=== PATIENT | male | born 1955 | race Caucasian/White ===

== ENCOUNTER 2018-10-08 15:09 | Emergency (ER) | payer OTHER ==
--- NOTE | 2018-10-08 15:17 | ER Report ---
History and Physical Time Seen By MD: 15:17 HPI/ROS CHIEF COMPLAINT: Dizziness, vomiting HISTORY OF PRESENT ILLNESS: 63-year-old male patient presents to emergency room with complaint of dizziness and vomiting. Patient states this started this morning when he woke up. He states that the symptoms he got out of bed he is very dizzy. He states that he was able to walk using the mancuso to let the dogs out. He states that after that he try lying back down. He states he did have nausea and vomiting associated with this. He states that any type of movement seems to make the dizziness worse. He states he is not taking any medication for this. He denies having any fevers, diarrhea. Patient states he's never had this in the past. REVIEW OF SYSTEMS: Respiratory: No cough, no dyspnea. Cardiovascular: No chest pain, no palpitations. Gastrointestinal: As noted above. Musculoskeletal: No back pain. Allergies: Coded Allergies: No Known Drug Allergies (Unverified , 10/08/18) Home Meds Active Scripts Ondansetron Hcl (ZOFRAN) 4 Mg Tablet, 4 MG PO Q6H PRN for NAUSEA/VOMITING, #20 TAB Prov:ALFRED ALANIS [facility] 10/08/18 Scopolamine (Scopolamine) 1 Mg/3 Day Patch.td.3, 1 PATCH.72H TD Q3D PRN for DIZZINESS, #3 PATCH.72H Prov:ALFRED ALANIS [facility] 10/08/18 Meclizine Hcl (MECLIZINE HCL) 25 Mg Tablet, 25 MG PO Q6H PRN for DIZZINESS, #30 TAB Prov:ALFRED ALANIS [facility] 10/08/18 Reported Medications Esomeprazole Magnesium (NEXIUM) 40 Mg Capsule.dr, 1 CAP PO QDAY, CAP 10/08/18 Aspirin (ASPIR 81) 81 Mg Tablet.dr, 81 MG PO QDAY, TAB 10/08/18 Cholecalciferol (Vitamin D3) (VITAMIN D3) 1,000 Unit Tablet, 5000 UNIT PO QDAY, TAB 10/08/18 Past Medical/Surgical History Patient has a past medical history of hiatal hernia, reflux, hyperlipidemia. Patient denies any surgical history. Reviewed Nurses Notes: Yes Constitutional Vital Sign - Last 24 Hours 10/08/18 10/08/18 10/08/18 10/08/18 15:09 15:15 15:18 15:30 Temp 97.6 Pulse ??? 86 Resp 20 B/P (MAP) 154/88 154/88 (110) 139/97 (111) O2 Delivery Room Air 10/08/18 10/08/18 10/08/18 10/08/18 15:39 16:00 16:30 16:39 Pulse 72 84 B/P (MAP) 128/76 (93) 140/82 (101) Pulse Ox 92 90 10/08/18 10/08/18 17:00 17:30 Pulse 75 77 B/P (MAP) 137/90 (106) 128/84 (99) Pulse Ox 93 93 Physical Exam General Appearance: The patient is alert, has no immediate need for airway protection and no current signs of toxicity. Eyes: Pupils equal and round no injection. Extraocular movements intact. Kian- Hallpike was done which was positive when looking to the left. Respiratory: Chest is non tender, lungs are clear to auscultation. Cardiac: regular rate and rhythm Gastrointestinal: Abdomen is soft and non tender, no masses, bowel sounds normal. Musculoskeletal: Neck: Neck is supple and non tender. Extremities have full range of motion and are non tender. Skin: No rashes or lesions. DIFFERENTIAL DIAGNOSIS: After history and physical exam differential diagnosis was considered for dizziness including but not limited to peripheral and central causes of vertigo, orthostatic causes including dehydration, and blood loss. Medical Decision Making Data Points Result Diagram: 10/08/18 1558 10/08/18 1558 Laboratory Hematology Test 10/08/18 15:14 10/08/18 15:58 Urine Color Yellow Urine Clarity Clear Urine pH 8.0 pH (4.8-9.5) Urine Specific [place] 1.020 Urine Protein 30 mg/dL (NEGATIVE) Urine Glucose (UA) Negative mg/dL (NEGATIVE) Urine Ketones 20 mg/dL (NEGATIVE) Urine Blood Negative (NEGATIVE) Urine Nitrite Negative (NEGATIVE) Urine Bilirubin Negative (NEGATIVE) Urine Urobilinogen Negative mg/dL (0.2-1.9) Urine Leukocyte Esterase Negative (NEGATIVE) Urine RBC None /HPF (0-2/HPF) Urine WBC 1 /HPF (0-5/HPF) Urine Squamous Epithelial Cells Few /LPF (</=FEW) Urine Bacteria Negative /HPF (NONE-FEW) Urine Mucus Few /HPF (NONE-FEW) Red Blood Count 5.19 M/uL (4.00-5.60) Mean Corpuscular Volume 89.3 fL (80.0-96.0) Mean Corpuscular Hemoglobin 30.4 pg (26.0-33.0) Mean Corpuscular Hemoglobin Concent 34.1 g/dL (32.0-36.0) Red Cell Distribution Width 12.8 % (11.5-14.5) Mean Platelet Volume 8.4 fL (7.2-11.1) Neutrophils (%) (Auto) 81.3 % (39.4-72.5) Lymphocytes (%) (Auto) 12.9 % (17.6-49.6) Monocytes (%) (Auto) 5.1 % (4.1-12.4) Eosinophils (%) (Auto) 0.0 % (0.4-6.7) Basophils (%) (Auto) 0.7 % (0.3-1.4) Nucleated RBC Relative Count (auto) 0.1 /100WBC Neutrophils # (Auto) 11.0 K/uL (2.0-7.4) Lymphocytes # (Auto) 1.7 K/uL (1.3-3.6) Monocytes # (Auto) 0.7 K/uL (0.3-1.0) Eosinophils # (Auto) 0.0 K/uL (0.0-0.5) Basophils # (Auto) 0.1 K/uL (0.0-0.1) Nucleated RBC Absolute Count (auto) 0.01 K/uL Sodium Level 140 mmol/L (137-145) Potassium Level 3.9 mmol/L (3.5-5.0) Chloride Level 110 mmol/L (98-107) Carbon Dioxide Level 21 mmol/L (22-30) Blood Urea Nitrogen 21 mg/dl (9-21) Creatinine 0.90 mg/dl (0.66-1.25) Glomerular Filtration Rate Calc > 60.0 Random Glucose 113 mg/dl (75-110) Calcium Level 9.1 mg/dl (8.4-10.2) Total Bilirubin 1.4 mg/dl (0.2-1.3) Aspartate Amino Transf (AST/SGOT) 39 U/L (0-35) Alanine Aminotransferase (ALT/SGPT) 33 U/L (0-56) Alkaline Phosphatase 73 U/L (0-126) Troponin I < 0.012 ng/ml Total Protein 6.7 g/dl (6.3-8.2) Albumin 3.9 g/dl (3.5-5.0) Chemistry Test 10/08/18 15:14 10/08/18 15:58 Urine Color Yellow Urine Clarity Clear Urine pH 8.0 pH (4.8-9.5) Urine Specific [place] 1.020 Urine Protein 30 mg/dL (NEGATIVE) Urine Glucose (UA) Negative mg/dL (NEGATIVE) Urine Ketones 20 mg/dL (NEGATIVE) Urine Blood Negative (NEGATIVE) Urine Nitrite Negative (NEGATIVE) Urine Bilirubin Negative (NEGATIVE) Urine Urobilinogen Negative mg/dL (0.2-1.9) Urine Leukocyte Esterase Negative (NEGATIVE) Urine RBC None /HPF (0-2/HPF) Urine WBC 1 /HPF (0-5/HPF) Urine Squamous Epithelial Cells Few /LPF (</=FEW) Urine Bacteria Negative /HPF (NONE-FEW) Urine Mucus Few /HPF (NONE-FEW) White Blood Count 13.6 k/uL (4.5-11.0) Red Blood Count 5.19 M/uL (4.00-5.60) Hemoglobin 15.8 g/dL (14.0-18.0) Hematocrit 46.4 % (42.0-52.0) Mean Corpuscular Volume 89.3 fL (80.0-96.0) Mean Corpuscular Hemoglobin 30.4 pg (26.0-33.0) Mean Corpuscular Hemoglobin Concent 34.1 g/dL (32.0-36.0) Red Cell Distribution Width 12.8 % (11.5-14.5) Platelet Count 246 K/uL (150-450) Mean Platelet Volume 8.4 fL (7.2-11.1) Neutrophils (%) (Auto) 81.3 % (39.4-72.5) Lymphocytes (%) (Auto) 12.9 % (17.6-49.6) Monocytes (%) (Auto) 5.1 % (4.1-12.4) Eosinophils (%) (Auto) 0.0 % (0.4-6.7) Basophils (%) (Auto) 0.7 % (0.3-1.4) Nucleated RBC Relative Count (auto) 0.1 /100WBC Neutrophils # (Auto) 11.0 K/uL (2.0-7.4) Lymphocytes # (Auto) 1.7 K/uL (1.3-3.6) Monocytes # (Auto) 0.7 K/uL (0.3-1.0) Eosinophils # (Auto) 0.0 K/uL (0.0-0.5) Basophils # (Auto) 0.1 K/uL (0.0-0.1) Nucleated RBC Absolute Count (auto) 0.01 K/uL Glomerular Filtration Rate Calc > 60.0 Calcium Level 9.1 mg/dl (8.4-10.2) Total Bilirubin 1.4 mg/dl (0.2-1.3) Aspartate Amino Transf (AST/SGOT) 39 U/L (0-35) Alanine Aminotransferase (ALT/SGPT) 33 U/L (0-56) Alkaline Phosphatase 73 U/L (0-126) Troponin I < 0.012 ng/ml Total Protein 6.7 g/dl (6.3-8.2) Albumin 3.9 g/dl (3.5-5.0) Urinalysis Test 10/08/18 15:14 Urine Color Yellow Urine Clarity Clear Urine pH 8.0 pH (4.8-9.5) Urine Specific [place] 1.020 Urine Protein 30 mg/dL (NEGATIVE) Urine Glucose (UA) Negative mg/dL (NEGATIVE) Urine Ketones 20 mg/dL (NEGATIVE) Urine Blood Negative (NEGATIVE) Urine Nitrite Negative (NEGATIVE) Urine Bilirubin Negative (NEGATIVE) Urine Urobilinogen Negative mg/dL (0.2-1.9) Urine Leukocyte Esterase Negative (NEGATIVE) Urine RBC None /HPF (0-2/HPF) Urine WBC 1 /HPF (0-5/HPF) Urine Squamous Epithelial Cells Few /LPF (</=FEW) Urine Bacteria Negative /HPF (NONE-FEW) Urine Mucus Few /HPF (NONE-FEW) EKG/Imaging EKG Interpretation 12 lead EKG: Rhythm: normal sinus rhythm with a ventricular rate of 68 bpm [place]: normal QRS: normal ST segments: normal Imaging CHEST PA AND LAT History: dizziness FINDINGS: Comparison studies: None. Tubes and Lines: None. Lungs and pleura: Well aerated. No evidence of focal consolidation or pleural effusions. Mediastinum: normal. Cardiac silhouette: normal . Osseous structures: Unremarkable for age . IMPRESSION: Normal chest Report Dictated By: Iker Mcmillan MD at 10/08/2018 4:39 PM Report E-Signed By: Iker Mcmillan MD at 10/08/2018 4:40 PM EXAMINATION: CT HEAD WITHOUT CONTRAST COMPARISON: None available HISTORY: Dizziness. PROCEDURE: Noncontrast CT from the vertex through the skull base. One of the following dose optimization techniques was utilized in the performance of this exam: Automated exposure control; adjustment of the mA and/or kV according to the patient's size; or use of an iterative reconstruction technique. Specific details can be referenced in the facility's radiology CT exam operational policy. FINDINGS: Brain volume: Age-appropriate. Hemorrhage/extra-axial fluid: None. Mass effect/midline shift/edema: None. Ischemia: Patrick-white differentiation is preserved. Ventricles and basal cisterns: Within normal limits. Posterior fossa: Negative. Vessels: Negative. Calvarium, skull base, and scalp: Negative. Visualized sinuses and orbits: Within normal limits. IMPRESSION: Negative noncontrast head CT. Report Dictated By: Bulmaro Jackson MD at 10/08/2018 4:22 PM Report E-Signed By: Bulmaro Jackson MD at 10/08/2018 4:25 PM ED Course/Re-evaluation ED Course Patient was medicated exam room, history and physical were obtained. Differential diagnoses were considered. On examination lungs are clear, heart is regular, abdomen soft nontender. Patient did have a positive Hallpike test. A CBC, CMP, troponin, EKG, chest x-ray, CT scan of the head were done. EKG showed a normal sinus rhythm, troponin was negative, labs were unremarkable except she did have a slightly elevated white count 11.8. With those likely caused by stress. CT scan of the head was normal. After getting the results back we did treat him with meclizine and scopolamine. Patient did have improvement of his dizziness. He states he is ready home and laid down for a while. We will go a head and discharge patient home at this time. We will send a prescription for scopolamine as well as more meclizine. He states take that as needed for dizziness. Patient and verbalized understanding and agreement with plan. Decision to Disposition Date: Oct 08, 2018 Decision to Disposition Time: 17:28 Depart Departure Latest Vital Signs Vital Signs Date Time Temp Pulse Resp B/P (MAP) Pulse Ox O2 Delivery O2 Flow Rate FiO2 10/08/18 17:30 77 128/84 (99) 93 10/08/18 15:15 97.6 20 Room Air Impression: Primary Impression: Vertigo Condition: Improved Disposition: HOME OR SELF-CARE New Scripts Ondansetron Hcl (ZOFRAN) 4 Mg Tablet 4 MG PO Q6H PRN for NAUSEA/VOMITING, #20 TAB Prov: ALFRED ALANIS 10/08/18 Scopolamine (Scopolamine) 1 Mg/3 Day Patch.td.3 1 PATCH.72H TD Q3D PRN for DIZZINESS, #3 PATCH.72H Prov: ALFRED ALANIS 10/08/18 Meclizine Hcl (MECLIZINE HCL) 25 Mg Tablet 25 MG PO Q6H PRN for DIZZINESS, #30 TAB Prov: ALFRED ALANIS 10/08/18 Patient Instructions: Vertigo (ED) Additional Instructions: Get plenty of rest. Limit activity by how you are feeling. Return to the ER if condition worsens. Follow up with a primary care provider in the next week. Take medication as prescribed. Increase fluid intake. ALFRED ALANIS Oct 08, 2018 15:17
[2018-10-08] MEDS ORDERED: CHOL10005 PO (15:24)
[2018-10-08] MEDS ORDERED: ASPI-1471 PO (15:24)
[2018-10-08] MEDS ORDERED: NS(*) 0.9% 1000 ML BAG 1,000 ML IV ONE (15:31)
[2018-10-08] MEDS ORDERED: ONDANSETRON 4 MG/2 ML VIAL IVP ONE (15:35)
[2018-10-08] MEDS ORDERED: ESOM40CA42 PO (15:42)
--- NOTE | 2018-10-08 15:44 | EKG ---
FACILITY: [facility] - [place] PATIENT NAME: WILD LI : [id number] MR: [id number] V: [id number] EXAM DATE: ORDERING PHYSICIAN: ALFRED ALANIS TECHNOLOGIST: TORRES Test Reason : DIZZINESS Blood Pressure : / mmHG Vent. Rate : 068 BPM Atrial Rate : 068 BPM P-R Int : 152 ms QRS Dur : 082 ms QT Int : 434 ms P-R-T Axes : 062 028 065 degrees QTc Int : 461 ms Normal sinus rhythm Normal ECG No previous ECGs available Confirmed by Torsten Sales [id number]) on 10/08/2018 4:51:50 PM Referred By: ANNABELLE Confirmed By:Torsten Mendiola
[2018-10-08 16:18] LABS: PLATELET COUNT, AUTOMATED 246 K/uL (150-450)
--- NOTE | 2018-10-08 16:30 | RADIOLOGY IMAGING REPORT ---
FACILITY: [facility] - [place] PATIENT NAME: Sherif Walker : 1955 MR: [id number] V: [id number] EXAM DATE: ORDERING PHYSICIAN: ALFRED ALANIS TECHNOLOGIST: Location: [facility] - [place] Patient: Sherif Walker : 1955 Visit/Account:[id number] Date of Sevice: 10/08/2018 EXAMINATION: CT HEAD WITHOUT CONTRAST COMPARISON: None available HISTORY: Dizziness. PROCEDURE: Noncontrast CT from the vertex through the skull base. One of the following dose optimizat ion techniques was utilized in the performance of this exam: Automated exposure control; adjustment o f the mA and/or kV according to the patient's size; or use of an iterative reconstruction technique. Specific details can be referenced in the facility's radiology CT exam operational policy. FINDINGS: Brain volume: Age-appropriate. Hemorrhage/extra-axial fluid: None. Mass effect/midline shift/edema: None. Ischemia: Patrick-white differentiation is preserved. Ventricles and basal cisterns: Within normal limits. Posterior fossa: Negative. Vessels: Negative. Calvarium, skull base, and scalp: Negative. Visualized sinuses and orbits: Within normal limits. IMPRESSION: Negative noncontrast head CT. Report Dictated By: Bulmaro Jackson MD at 10/08/2018 4:22 PM Report E-Signed By: Bulmaro Jackson MD at 10/08/2018 4:25 PM [id number]
[2018-10-08] MEDS ORDERED: MECLIZINE HCL 25 MG TAB PO ONE (16:45)
[2018-10-08] MEDS ORDERED: SCOPOLAMINE 1.5 MG PATCH TD ONE (16:45)
--- NOTE | 2018-10-08 16:45 | RADIOLOGY IMAGING REPORT ---
FACILITY: [facility] PATIENT NAME: Sherif Walker : 1955 MR: [id number] V: [id number] EXAM DATE: ORDERING PHYSICIAN: ALFRED ALANIS TECHNOLOGIST: Location: [facility] Patient: Sherif Walker : 1955 Visit/Account:[id number] Date of Sevice: 10/08/2018 CHEST PA AND LAT History: dizziness FINDINGS: Comparison studies: None. Tubes and Lines: None. Lungs and pleura: Well aerated. No evidence of focal consolidation or pleural effusions. Mediastinum: normal. Cardiac silhouette: normal . Osseous structures: Unremarkable for age . IMPRESSION: Normal chest Report Dictated By: Iker Mcmillan MD at 10/08/2018 4:39 PM Report E-Signed By: Iker Mcmillan MD at 10/08/2018 4:40 PM WSN:[id number]
[2018-10-08] MEDS ORDERED: SCOP1PAT16 TD (17:27)
[2018-10-08] MEDS ORDERED: MECL25TA9 PO (17:27)
[2018-10-08] MEDS ORDERED: ONDA4TAB97 PO (17:28)
[2018-10-08 17:30] VITALS: BP 128/84
== END 2018-10-08 17:39 | disposition home or self-care (01) ==
LOC: ER 15:21
DX: R42 Dizziness and giddiness (principal)
CPT/HCPCS: 36416; 70450; 71046; 81001; 82948; 84484; 85025; 93005; 96361; 96374; 99284; J2405; J7030; J8597; 82040; 82247; 82310; 82374; 82435; 82565; 82947; 84075; 84132; 84155; 84295; 84450; 84460; 84520